=== PATIENT | male | born 1990 | race Two or more races ===

== ENCOUNTER 2021-09-16 08:41 | Emergency (ER) | payer SELFPAY ==
[~2021-09-16] VITALS: Ht 175.3 cm; Wt 82.0 kg
[2021-09-16] MEDS ORDERED: IBUPROFEN 400MG TABLET PO ONE (10:30)
[2021-09-16] MEDS ORDERED: ACETAMINOPHEN 325MG TABLET PO ONE (10:30)
[2021-09-16] MEDS ORDERED: IBUP-2028 MT (12:45)
[2021-09-16 13:25] VITALS: BP 138/76
== END 2021-09-16 13:32 | disposition home or self-care (01) ==
LOC: ER 08:46
DX: R51.9 Headache, unspecified (principal); F41.9 Anxiety disorder, unspecified; F20.9 Schizophrenia, unspecified; F15.10 Other stimulant abuse, uncomplicated
CPT/HCPCS: 93005; 99283